=== PATIENT | female | born 1990 | race Caucasian/White ===

== ENCOUNTER 2016-05-12 07:15 | Inpatient (IN) | payer BC, OTHER ==
[~2016-05-12] VITALS: Ht 167.6 cm; Wt 75.0 kg
[2016-05-12] VITALS (23 sets, daily range): BP systolic 87–118; BP diastolic 48–80
[~2016-05-12 07:15] MED LIST: ACET50TA PO; ANUS2.5C2 PR; DOCU10ELUD PO; IBUP80TA PO; VITAPRTA PO
[2016-05-12] MEDS ORDERED: PENICILLIN G POTASSIUM IV 5 MU in D5W MINI-BAG PLUS 100 ML IV STA (07:58)
[2016-05-12] MEDS: miSOPROStol 50 MCG 1/2 TAB (S0191) PO SCH ×2 (08:27→12:46)
[2016-05-12 08:32] LABS: MEAN CORPUSCULAR HEMOGLOBIN 26.5 pg (27.0-33.0); MEAN CORPUSCULAR HGB CONC 33.1 g/dl (32.0-36.5); MEAN CORPUSCULAR VOLUME 80.3 fl (80.0-96.0); RED CELL DISTRIBUTION WIDTH 15.8 % (11.5-14.5); WHITE BLOOD COUNT 10.3 K/mm3 (4.0-10.0)
--- NOTE | 2016-05-12 08:50 | HPE ---
DATE OF ADMISSION: 05/12/2016 Presley is a 26-year-old 3, para 2-0-0-2 at 40-5/7 weeks gestation with an EDC of 05/07/2016 confirmed by first trimester ultrasound. She presents to labor and delivery today for induction of labor per consult with Dr. Diamond Ag for post term . care was initiated at [facility] in the first trimester. course has been uncomplicated. She does deny regular contractions, vaginal bleeding and leakage of fluid today and her fetus has been active. OBSTETRICAL HISTORY: May 2012 at 42 weeks gestation she had a spontaneous vaginal delivery for an 8 pounds 7 ounce female, vacuum-assisted delivery. June of 2014 at 41 weeks and 3 days she had an 8 pounds 10 ounce female, spontaneous vaginal delivery with a hemorrhage. Estimated blood loss of 600 mL. OBSTETRICAL LABS: Blood type is A+. Antibody screen negative. Pap was normal. Rubella immune. VDRL nonreactive. Urine culture with no growth. Hep B surface antigen negative. HIV negative. Hep C antibody negative. Gonorrhea and chlamydia negative. She did decline all genetic serum screenings. Her gestational diabetic screening was 85. Her Group B Streptococcus (GBS) is positive. PAST MEDICAL HISTORY: Childhood varicella. SURGERIES: None. FAMILY HISTORY: Hypertension, autoimmune disease and autism. SOCIAL HISTORY: The patient is . Her is at bedside and supportive. She is a nonsmoker. Denies alcohol and drug use. There is no history of sexually transmitted infection and she denies history of abuse physical, sexual and emotional. ALLERGIES: No known drug allergies. CURRENT MEDICATIONS: Include her vitamin. OBJECTIVE: Temperature 97.4, pulse 100, respirations 20, blood pressure is 108/63 today. She is alert and oriented times three and in no apparent distress. heart rate is 140 with moderate variability, positive accelerations, no decelerations. There is no pattern of regular contractions. Her abdomen is gravid, cephalic presentation. Estimated weight 8 pounds, 7 ounces. Sterile vaginal exam 1 cm dilated, 50% effaced, -3 station, posterior and soft. ASSESSMENT: Intrauterine at 40-5/7 weeks gestation. heart rate category 1. Post term . PLAN: Admit the patient to labor and delivery. Saline lock. Labs as ordered. Out of bed ad mina. Regular diet. Misoprostol 50 mcg by mouth every 4 hours for cervical ripening. I did review risks of induction including increased risk for section, intolerance to labor, failed induction and arrest of labor. The patient has had all of her questions answered and she does desire to proceed with induction of labor at this time. I do anticipate cervical ripening and active labor. [facility]
[2016-05-12] MEDS ORDERED: PENICILLIN G POTASSIUM IV 2.5 MU in D5W 100 ML IV SCH ×2 (12:00→21:30)
[2016-05-12] MEDS ORDERED: LR 1,000 ML IV SCH (16:57)
[2016-05-12] MEDS ORDERED: OXYTOCIN DRIP 30 UNITS in APPROPRIATE DILUENT 1 EA IV SCH (17:00)
[2016-05-12] MEDS ORDERED: FENTANYL 2MCG/ML ROPIVACAINE 0.2% NACL 250 ML CADD As Ordered ONE (20:43)
[2016-05-12] MEDS ORDERED: FENTANYL/ROPIVACAINE/NACL CADD 250 ML EPIDURAL SCH (21:45)
[2016-05-12] MEDS ORDERED: ONDANSETRON 4MG/2ML VIAL (J2405) IV PRN (21:45)
[2016-05-12] MEDS ORDERED: NALOXONE INJ 0.4 MG/1 ML VIAL (J2310) IV PRN (21:45)
[2016-05-12] MEDS ORDERED: REFRIGERATOR IV KEYS XX PRN (21:45)
[2016-05-12] MEDS ORDERED: EPIDURAL COMMENT XX SCH (21:45)
[2016-05-12] MEDS ORDERED: EPIDURAL/PCA KEYS XX PRN (21:45)
[2016-05-12] MEDS ORDERED: LACTATED RINGER'S 1000 ML IV PRN (21:45)
[2016-05-12] MEDS ORDERED: diphenhydrAMINE INJ 50MG/ML VIAL (J1200) IV PRN (21:45)
[2016-05-13] MEDS ORDERED: OXYTOCIN DRIP 30 UNITS in APPROPRIATE DILUENT 1 EA IV SCH (00:17)
[2016-05-13] MEDS ORDERED: DOCUSATE SODIUM 100 MG CAP PO PRN (00:30)
[2016-05-13] MEDS ORDERED: ANUSOL HC CREAM 30GM TOP PRN (00:30)
[2016-05-13] MEDS ORDERED: MEASLES,MUMPS,RUBELLA VACCINE INJ (MMR-II) (90707) SC SCH (00:30)
[2016-05-13] MEDS ORDERED: RHOGAM 300 MCG (1500 IU) INJ (J2790) IM SCH (00:30)
[2016-05-13] MEDS ORDERED: METHYLERGONOVINE MALEATE 0.2 MG/ML VIAL (J2210) IM ONE (00:30)
[2016-05-13] MEDS ORDERED: DIBUCAINE 1% OINTMENT 30GM TOP PRN (00:30)
[2016-05-13] MEDS ORDERED: METHYLERGONOVINE MALEATE 0.2 MG TAB PO PRN (00:30)
[2016-05-13] MEDS: IBUPROFEN 800 MG TAB PO PRN ×3 (00:56→16:59)
--- NOTE | 2016-05-13 01:03 | DN ---
DATE: 05/12/2016 Presley is a 26-year-old 4, para 3-0-1-3 now who was admitted to labor and delivery for induction of labor due to post-term . Two doses of misoprostol was utilized as well as IV Pitocin and labor did ensue. She did utilize an epidural for her labor coping. She progressed to full dilation at 23:20. She pushed to a normal spontaneous vaginal delivery of a live female infant in OA position with restitution to ROT position with a left compound hand at 23:29. There was no nuchal cord. The shoulders delivered spontaneously and the corpus immediately followed. The was placed on the maternal abdomen crying and active. Her mouth and nares were bulb suctioned. The cord was clamped times two and cut by the father of the baby. A spontaneous expulsion of an intact placenta with three-vessel cord by Hastings mechanism was at 23:35. Uterine hemostasis was achieved with IV Pitocin rapid infusion, Methergine IM and uterine fundal massage. Estimated blood loss 400 mL. Perineum and vagina were inspected and noted to have a second-degree midline laceration. The laceration was repaired under epidural anesthesia with 3-0 Rapide in the usual fashion. Mother and baby are stable at this time and will be transferred to mother baby care unit once they are recovered. Mom does plan to breastfeed her daughter. Infant weighed 7 pounds 12 ounces, 35:14 grams, 8/9. The name is undecided. At the close of delivery, lap counts, instrument counts and needle counts were correct and verified.
[2016-05-13 01:53] VITALS: BP 110/66
[2016-05-13 05:12] VITALS: BP 118/56
[2016-05-13] MEDS: PRENATAL VITAMIN TAB PO SCH (09:23)
[2016-05-13] MEDS: ACETAMINOPHEN 500 MG TAB PO PRN ×2 (12:53→20:40)
[2016-05-13 18:26] VITALS: BP 112/60
[2016-05-14] MEDS: IBUPROFEN 800 MG TAB PO PRN ×2 (02:02→08:15)
[2016-05-14 05:53] VITALS: BP 109/59
[2016-05-14] MEDS: PRENATAL VITAMIN TAB PO SCH (08:14)
[2016-05-14] MEDS ORDERED: IBUP-1114 PO (08:42)
[2016-05-14] MEDS ORDERED: ACET50TA PO (08:42)
== END 2016-05-14 11:35 | disposition home or self-care (01) | DRG 540 ==
LOC: M LDI 07:15 → M OBS 05-13 01:52
PROVIDERS: ADMIT Advanced Practice Midwife; ATTEND Advanced Practice Midwife
PROC: 10D00Z1 Extraction of Products of Conception, Low, Open Approach (ICD-10-PCS; principal; 2016-05-12)
PROC: 0KQM0ZZ Repair Perineum Muscle, Open Approach (ICD-10-PCS; 2016-05-12)
PROC: 3E0P7GC Introduction of Other Therapeutic Substance into Female Reproductive, Via Natural or Artificial Opening (ICD-10-PCS; 2016-05-12)
PROC: 3E033VJ Introduction of Other Hormone into Peripheral Vein, Percutaneous Approach (ICD-10-PCS; 2016-05-12)
DX: O48.0 Post-term pregnancy (principal); O32.6XX0 Maternal care for compound presentation, not applicable or unspecified; Z37.0 Single live birth; Z3A.40 40 weeks gestation of pregnancy; O70.1 Second degree perineal laceration during delivery

== ENCOUNTER → 2017-11-15 | Outpatient (CLI) | payer BC, OTHER ==
[2017-11-15 13:16] LABS: HEMOGLOBIN 10.8 g/dl (12.0-15.5); MEAN CORPUSCULAR HEMOGLOBIN 28.5 pg (27.0-33.0); MEAN CORPUSCULAR HGB CONC 32.7 g/dl (32.0-36.5); MEAN CORPUSCULAR VOLUME 87.1 fl (80.0-96.0); PLATELET COUNT, AUTOMATED 230 10^3/uL (150-450); RED BLOOD COUNT 3.79 10^6/uL (4.00-5.40); RED CELL DISTRIBUTION WIDTH 15.9 % (11.5-14.5); WHITE BLOOD COUNT 8.5 10^3/uL (4.0-10.0)
[2017-11-15 13:47] LABS: GLUCOSE CHALLENGE TEST 1 HOUR 86 MG/DL (LESS THAN 140)
== END ==
LOC: M SMT 10:45
DX: Z36.89 Encounter for other specified antenatal screening (principal); Z3A.00 Weeks of gestation of pregnancy not specified
CPT/HCPCS: 82950

== ENCOUNTER → 2017-11-15 | Outpatient (CLI) | payer BC, OTHER ==
[2017-11-15 15:21] LABS: HIV 1&2 SCREEN CENTAUR NEGATIVE (NEGATIVE)
== END ==
LOC: M SMT 10:49
DX: Z36.89 Encounter for other specified antenatal screening (principal); Z3A.00 Weeks of gestation of pregnancy not specified
CPT/HCPCS: 87389

== ENCOUNTER → 2018-01-22 | Outpatient (REF) | payer OTHER | LOC: M SMT 12:54 | DX: Z34.83 Encounter for supervision of other normal pregnancy, third trimester (principal) ==

== ENCOUNTER 2018-02-18 19:50 | Inpatient (IN) | payer BC, OTHER ==
[2018-02-18 20:49] LABS: HEMOGLOBIN 10.1 g/dl (12.0-15.5); MEAN CORPUSCULAR HEMOGLOBIN 24.6 pg (27.0-33.0); MEAN CORPUSCULAR HGB CONC 31.6 g/dl (32.0-36.5); MEAN CORPUSCULAR VOLUME 77.9 fl (80.0-96.0); PLATELET COUNT, AUTOMATED 216 10^3/uL (150-450); RED BLOOD COUNT 4.11 10^6/uL (4.00-5.40); RED CELL DISTRIBUTION WIDTH 17.5 % (11.5-14.5); WHITE BLOOD COUNT 8.1 10^3/uL (4.0-10.0)
[2018-02-18] MEDS: miSOPROStol 50 MCG 1/2 TAB (S0191) PO (20:54)
[2018-02-18] MEDS: PENICILLIN G POTASSIUM IV 5 MU in D5W MINI-BAG PLUS 100 ML IV (20:55)
[2018-02-18] MEDS: LR 1,000 ML IV (21:59)
[2018-02-19] MEDS: PENICILLIN G POTASSIUM IV 2.5 MU in APPROPRIATE DILUENT 1 EA IV (01:08)
[2018-02-19] MEDS: OXYTOCIN DRIP 30 UNITS in APPROPRIATE DILUENT 1 EA IV (01:08)
[2018-02-19] MEDS: LR 1,000 ML IV (01:08)
[2018-02-19] MEDS ORDERED: FENTANYL 2MCG/ML ROPIVACAINE 0.2% IN 0.9% NACL 200ML IVBAG As Ordered (01:29)
[2018-02-19] MEDS ORDERED: ePHEDrine SULFATE 25 MG/5 ML(5MG/ML) SYRINGE IV (02:15)
[2018-02-19] MEDS ORDERED: REFRIGERATOR IV KEYS XX (02:15)
[2018-02-19] MEDS ORDERED: FENTANYL/ROPIVACAINE/NACL BAG 200 ML EPIDURAL (02:15)
[2018-02-19] MEDS ORDERED: ONDANSETRON 4MG/2ML VIAL (J2405) IV (02:15)
[2018-02-19] MEDS ORDERED: EPIDURAL COMMENT XX (02:15)
[2018-02-19] MEDS ORDERED: diphenhydrAMINE INJ 50MG/ML VIAL (J1200) IV (02:15)
[2018-02-19] MEDS ORDERED: LACTATED RINGER'S 1000 ML IV (02:15)
[2018-02-19] MEDS ORDERED: NALOXONE INJ 0.4 MG/1 ML VIAL (J2310) IV (02:15)
[2018-02-19] MEDS ORDERED: EPIDURAL/PCA KEYS XX (02:15)
[2018-02-19] MEDS ORDERED: METHYLERGONOVINE MALEATE 0.2 MG/ML VIAL (J2210) As Ordered (04:20)
[2018-02-19] MEDS ORDERED: OXYTOCIN DRIP 30 UNITS in APPROPRIATE DILUENT 1 EA IV (05:10)
[2018-02-19] MEDS ORDERED: METHYLERGONOVINE MALEATE 0.2 MG/ML VIAL (J2210) IM (05:10)
[2018-02-19] MEDS ORDERED: RHOGAM 300 MCG (1500 IU) INJ (J2790) IM (05:15)
[2018-02-19] MEDS ORDERED: DIBUCAINE 1% OINTMENT 30GM TOP (05:15)
[2018-02-19] MEDS ORDERED: METHYLERGONOVINE MALEATE 0.2 MG TAB PO (05:15)
[2018-02-19] MEDS ORDERED: DOCUSATE SODIUM 100 MG CAP PO (05:15)
[2018-02-19] MEDS ORDERED: MEASLES,MUMPS,RUBELLA VACCINE INJ (MMR-II) (90707) SC (05:15)
[2018-02-19] MEDS ORDERED: ANUSOL HC CREAM 30GM TOP (05:15)
[2018-02-19] MEDS: PRENATAL VITAMINS CHEWABLE TABLET PO (07:58)
[2018-02-19] MEDS: IBUPROFEN 800 MG TAB PO ×2 (13:08→21:19)
[2018-02-19] MEDS: ACETAMINOPHEN 500 MG TAB PO (18:01)
[2018-02-20] MEDS: IBUPROFEN 800 MG TAB PO ×2 (04:37→13:53)
[2018-02-20] MEDS: PRENATAL VITAMINS CHEWABLE TABLET PO (08:48)
== END 2018-02-20 14:35 | disposition home or self-care (01) | DRG 560 ==
LOC: M LDI 19:50 → M OBS 02-19 07:56
PROVIDERS: Advanced Practice Midwife
PROC: 10E0XZZ Delivery of Products of Conception, External Approach (ICD-10-PCS; principal; 2018-02-18)
PROC: 0HQ9XZZ Repair Perineum Skin, External Approach (ICD-10-PCS; 2018-02-18)
PROC: 3E033VJ Introduction of Other Hormone into Peripheral Vein, Percutaneous Approach (ICD-10-PCS; 2018-02-18)
PROC: 10907ZC Drainage of Amniotic Fluid, Therapeutic from Products of Conception, Via Natural or Artificial Opening (ICD-10-PCS; 2018-02-18)
PROC: 3E0DXGC Introduction of Other Therapeutic Substance into Mouth and Pharynx, External Approach (ICD-10-PCS; 2018-02-18)
DX: O48.0 Post-term pregnancy (principal); O99.820 Streptococcus B carrier state complicating pregnancy; Z37.0 Single live birth; Z3A.40 40 weeks gestation of pregnancy; O70.0 First degree perineal laceration during delivery

== ENCOUNTER → 2019-08-13 | Outpatient (REF) | payer BC ==
[~2019-08-13] MED LIST changes: -ACET50TA PO; -DOCU10ELUD PO; +DOCU5LIQ PO; +IBUP-1114 PO; +MAPA500T17 PO; +MAPA500T2 PO; +PRENTAB9 PO
[2019-08-13 13:27] LABS: HEMATOCRIT 30.5 % (36.0-47.0); HEMOGLOBIN 9.7 g/dl (12.0-15.5); MEAN CORPUSCULAR HEMOGLOBIN 27.9 pg (27.0-33.0); MEAN CORPUSCULAR HGB CONC 31.8 g/dl (32.0-36.5); MEAN CORPUSCULAR VOLUME 87.6 fl (80.0-96.0); PLATELET COUNT, AUTOMATED 209 10^3/uL (150-450); RED BLOOD COUNT 3.48 10^6/uL (4.00-5.40)
== END ==
LOC: M PLALAB 09:28
PROVIDERS: ATTEND Advanced Practice Midwife
DX: Z34.93 Encounter for supervision of normal pregnancy, unspecified, third trimester (principal); Z3A.00 Weeks of gestation of pregnancy not specified

== ENCOUNTER 2019-10-03 13:14 | Inpatient (IN) | payer BC, OTHER ==
[2019-10-03] VITALS (25 sets, daily range): BP systolic 77–125; BP diastolic 43–63
[~2019-10-03] VITALS: Ht 167.6 cm; Wt 82.6 kg
[2019-10-03] MEDS ORDERED: IRON27TA2 PO (13:35)
[2019-10-03] MEDS ORDERED: PENICILLIN G POTASSIUM IV 5 MU in D5W MINI-BAG PLUS 100 ML IV STA ×2 (14:47→15:32)
--- NOTE | 2019-10-03 15:04 | HPE ---
DATE OF ADMISSION: 10/03/2019 HISTORY: 29-year-old, (G) 5, para (P) 4 female, at 39-1/7 weeks gestation by 9 week ultrasound, estimated date of confinement (EDC) 10/09/2019, presents for induction of labor. She has occasional contractions. She denies vaginal bleeding. COURSE: The patient initiated care [facility]. She had no complications. OBSTETRICAL HISTORY: 1. 2012, vaginal delivery, 8 pound 7 ounce female . 2. 2014, spontaneous vaginal delivery, 8 pound 10 ounce female . 3. 2016, spontaneous delivery, 7 pound 12 ounce female infant. 4. 2017, spontaneous delivery, 9 pound male infant. MEDICAL HISTORY: None. SURGICAL HISTORY: None. ALLERGIES: NONE. SOCIAL HISTORY: The patient lives in [place]. She is . She denies cigarettes, alcohol, or drug use. FAMILY HISTORY: Noncontributory. PHYSICAL [place]AMIN[place]: [place] [address], pulse 94. Afebrile. No apparent distress. HEAD/NECK: Exam normal. LUNGS: Clear. HEART: Regular rate and rhythm. ABDOMEN: Nontender, gravid. heart tones Category 1. CONTRACTIONS: Irregular. EXTREMITIES: Nontender. LABS: Blood type A positive and she is GBS positive. ASSESSMENT: 29-year-old, 5, para 4 female, at 39-1/7 weeks gestation who presents for labor induction. PLAN: The patient is admitted on 10/03/2019. Risks and benefits were discussed.
[2019-10-03] MEDS ORDERED: miSOPROStol 50 MCG 1/2 TAB (S0191) SL SCH (15:15)
[2019-10-03 15:24] LABS: HEMATOCRIT 33.1 % (36.0-47.0); HEMOGLOBIN 10.6 g/dl (12.0-15.5); MEAN CORPUSCULAR HEMOGLOBIN 27.5 pg (27.0-33.0); PLATELET COUNT, AUTOMATED 186 10^3/uL (150-450); RED BLOOD COUNT 3.85 10^6/uL (4.00-5.40); WHITE BLOOD COUNT 8.4 10^3/uL (4.0-10.0)
[2019-10-03] MEDS ORDERED: PENICILLIN G POTASSIUM IV 2.5 MU in IV 1 EA IV SCH ×2 (15:45→19:00)
[2019-10-03] MEDS ORDERED: LR 1,000 ML IV SCH ×2 (18:00→19:29)
[2019-10-03] MEDS ORDERED: OXYTOCIN 30 UNITS IN 0.9% NaCl 500ML IV BAG (J2590) As Ordered ONE (19:30)
[2019-10-03] MEDS ORDERED: OXYTOCIN DRIP 30 UNITS in IV 1 EA IV SCH (19:30)
[2019-10-03] MEDS: PENICILLIN G POTASSIUM IV 2.5 MU in IV 1 EA IV SCH ×2 (19:34→23:34)
[2019-10-03] MEDS ORDERED: **PENDING PCN ENTRY XX SCH (21:00)
[2019-10-03] MEDS ORDERED: FENTANYL 2MCG/ML ROPIVACAINE 0.2% IN 0.9% NACL 100ML IVBAG As Ordered ONE (22:50)
[2019-10-03] MEDS ORDERED: FENTANYL/ROPIVACAINE/NACL BAG 100 ML EPIDURAL SCH (23:20)
[2019-10-03] MEDS ORDERED: diphenhydrAMINE 50MG/ML VIAL (J1200) IV PRN (23:20)
[2019-10-03] MEDS ORDERED: ONDANSETRON 4MG/2ML VIAL IV PRN (23:20)
[2019-10-03] MEDS ORDERED: EPIDURAL/PCA KEYS XX PRN (23:20)
[2019-10-03] MEDS ORDERED: LACTATED RINGER'S 1000 ML IV PRN (23:20)
[2019-10-03] MEDS ORDERED: NALOXONE INJ 0.4MG/1ML VIAL (J2310 PER 1MG) IV PRN (23:20)
[2019-10-03] MEDS ORDERED: EPIDURAL COMMENT XX SCH (23:20)
[2019-10-03] MEDS ORDERED: REFRIGERATOR IV KEYS XX PRN (23:20)
[2019-10-03] MEDS ORDERED: ePHEDrine SULFATE 25 MG/5 ML(5MG/ML) SYRINGE IV PRN (23:20)
[2019-10-04] VITALS (20 sets, daily range): BP systolic 81–108; BP diastolic 50–65
[2019-10-04] MEDS: PENICILLIN G POTASSIUM IV 2.5 MU in IV 1 EA IV SCH (03:14)
[2019-10-04] MEDS ORDERED: OXYTOCIN DRIP 30 UNITS in IV 1 EA IV SCH ×4 (05:40)
[2019-10-04] MEDS ORDERED: ACETAMINOPHEN 500 MG TAB PO PRN (05:45)
[2019-10-04] MEDS ORDERED: RHOGAM 300 MCG (1500 IU) INJ (J2790) IM SCH (05:45)
[2019-10-04] MEDS ORDERED: MEASLES,MUMPS,RUBELLA VACCINE INJ (MMR-II) (90707) SC SCH (05:45)
[2019-10-04] MEDS ORDERED: METHYLERGONOVINE MALEATE 0.2 MG TAB PO PRN (05:45)
[2019-10-04] MEDS ORDERED: ANUSOL HC CREAM 30GM TOP PRN (05:45)
[2019-10-04] MEDS ORDERED: DIBUCAINE 1% OINTMENT 30GM TOP PRN (05:45)
[2019-10-04] MEDS ORDERED: ACETAMINOPHEN TAB 650MG DOSE (2X325MG) PO PRN (05:45)
[2019-10-04] MEDS ORDERED: METHYLERGONOVINE MALEATE 0.2 MG/ML VIAL (J2210) IM ONE (05:45)
[2019-10-04] MEDS ORDERED: DOCUSATE SODIUM 100 MG CAP PO PRN (05:45)
[2019-10-04] MEDS ORDERED: IBUPROFEN 600 MG TAB PO PRN (05:45)
[2019-10-04] MEDS ORDERED: OXYTOCIN 30 UNITS IN 0.9% NaCl 500ML IV BAG (J2590) As Ordered ONE (05:47)
--- NOTE | 2019-10-04 06:10 | DN ---
DATE OF DELIVERY: 10/04/2019 Presley is a 29-year-old, 5, para 5-0-0-5 now, who was admitted to labor and delivery for induction of labor for term . One dose of misoprostol was used and intravenous (IV) Pitocin, and labor did ensue. She used an epidural for her labor coping. She reached complete dilation at 0514 hours. She pushed to a normal spontaneous vaginal delivery of a live male in left occiput anterior (JULIANO) position with restitution to left occiput transverse (LOT) position at 0521 hours. There was a nuchal cord times two, loose, that was reduced manually at the time of delivery. The 's mouth and nares were bulb suctioned, and he placed on the maternal abdomen crying and active. The cord was clamped times two once pulsations ceased and cut by the father of the baby under my direction. Spontaneous expulsion of an intact placenta with three-vessel cord by Schultze mechanism was at 0521 hours. Uterine hemostasis achieved with IV Pitocin rapid infusion, Methergine 0.2 mg intramuscular (IM), and uterine fundal massage. Estimated blood loss 400 mL. Perineum and vagina inspected; noted to have a first-degree midline laceration. Laceration repaired in the usual fashion with #3-0 Rapide. male weight is pending. scores are 9 and 9. Mom is going to breastfeed her son, and the family have named him Reji. At the close of delivery, lap counts, needle counts, and instrument counts were correct and verified.
[2019-10-04] MEDS ORDERED: D5/0.9%NACL 1000ML IV ONE (07:45)
[2019-10-04] MEDS ORDERED: D5/LACTATED RINGERS 1000 ML IV ONE (07:45)
[2019-10-04] MEDS ORDERED: ONDANSETRON 4MG/2ML VIAL IV PRN (07:45)
[2019-10-04] MEDS: PRENATAL VITAMINS CHEWABLE TABLET PO SCH (09:00)
[2019-10-04 12:11] LABS: MEAN CORPUSCULAR HEMOGLOBIN 28.6 pg (27.0-33.0); MEAN CORPUSCULAR HGB CONC 33.3 g/dl (32.0-36.5); MEAN CORPUSCULAR VOLUME 85.7 fl (80.0-96.0); PLATELET COUNT, AUTOMATED 188 10^3/uL (150-450); WHITE BLOOD COUNT 14.6 10^3/uL (4.0-10.0)
[2019-10-04] MEDS: IBUPROFEN 800 MG TAB PO PRN (13:14)
[2019-10-05 06:13] VITALS: BP 99/50
[2019-10-05] MEDS: IBUPROFEN 800 MG TAB PO PRN (07:22)
[2019-10-05] MEDS: PRENATAL VITAMINS CHEWABLE TABLET PO SCH (09:20)
== END 2019-10-05 11:20 | disposition home or self-care (01) | DRG 560 ==
LOC: M LDI 13:14 → M OBS 10-04 14:47
PROVIDERS: ADMIT Advanced Practice Midwife; ATTEND Advanced Practice Midwife
PROC: 3E033VJ Introduction of Other Hormone into Peripheral Vein, Percutaneous Approach (ICD-10-PCS; 2019-10-03)
PROC: 3E0DXGC Introduction of Other Therapeutic Substance into Mouth and Pharynx, External Approach (ICD-10-PCS; 2019-10-03)
PROC: 10E0XZZ Delivery of Products of Conception, External Approach (ICD-10-PCS; principal; 2019-10-04)
PROC: 0HQ9XZZ Repair Perineum Skin, External Approach (ICD-10-PCS; 2019-10-04)
DX: O69.81X0 Labor and delivery complicated by cord around neck, without compression, not applicable or unspecified (principal); O70.0 First degree perineal laceration during delivery; Z37.0 Single live birth; Z3A.39 39 weeks gestation of pregnancy

== ENCOUNTER → 2021-05-11 | Outpatient (REF) | payer BC, OTHER ==
[~2021-05-11] MED LIST changes: +IRON27TA2 PO
== END ==
LOC: M SFHCWAGY 09:54
PROVIDERS: ATTEND Advanced Practice Midwife
DX: Z12.4 Encounter for screening for malignant neoplasm of cervix (principal)
CPT/HCPCS: 87624; G0123

== ENCOUNTER → 2021-08-03 | Outpatient (CLI) | payer BC, OTHER | LOC: M ADAMS 13:59 | PROVIDERS: ATTEND Family Medicine | DX: R06.00 Dyspnea, unspecified (principal) ==

== ENCOUNTER → 2021-08-03 | Outpatient (REF) | payer OTHER ==
[2021-08-03 17:13] LABS: BLOOD UREA NITROGEN 11 MG/DL (7-18); CALCIUM LEVEL 9.6 MG/DL (8.5-10.1); CARBON DIOXIDE LEVEL 28 MEQ/L (21-32); CHLORIDE LEVEL 108 MEQ/L (98-107); CREATININE FOR GFR 0.66 MG/DL (0.55-1.30); GLOMERULAR FILTRATION RATE > 60.0 (>60); GLUCOSE, FASTING 118 MG/DL (70-100); NT-PRO BNP 34 PG/ML (<125); POTASSIUM SERUM 4.1 MEQ/L (3.5-5.1); RHEUMATOID FACTOR QUANT < 10.0 IU/ML (<15.0); SODIUM LEVEL 141 MEQ/L (136-145)
== END ==
LOC: M SFHCADAM 13:25
PROVIDERS: ATTEND Family Medicine
DX: R06.00 Dyspnea, unspecified (principal); R20.2 Paresthesia of skin; M25.50 Pain in unspecified joint

== ENCOUNTER → 2021-09-14 | Outpatient (REF) | payer OTHER ==
[2021-09-15 14:52] LABS: ESTRADIOL < 19.0 PG/ML; FOLLICLE STIMULATING HORMONE 5.5 mIU/mL
== END ==
LOC: M SFHCADAM 15:35
PROVIDERS: ATTEND Family Medicine
DX: R23.2 Flushing (principal)

== ENCOUNTER → 2021-10-19 | Outpatient (REF) | payer OTHER ==
[2021-10-19 13:40] LABS: HCG, SERUM QUALITATIVE NEGATIVE (NEGATIVE)
[2021-10-19 13:44] LABS: PROLACTIN 4.3 NG/ML
== END ==
LOC: M LABDRWAD 12:27
PROVIDERS: ATTEND Advanced Practice Midwife
DX: E28.39 Other primary ovarian failure (principal)

== ENCOUNTER → 2022-03-16 | Outpatient (CLI) | payer OTHER ==
[2022-03-16 14:12] LABS: THYROID STIMULATING HORMONE 0.858 uIU/ML (0.358-3.740)
== END ==
LOC: M LABDRWAD 11:29
PROVIDERS: ATTEND Internal Medicine Endocrinology, Diabetes & Metabolism
DX: E28.310 Symptomatic premature menopause (principal)

== ENCOUNTER → 2022-03-28 | Outpatient (CLI) | payer BC, OTHER | LOC: M ADAMS 14:54 | PROVIDERS: ATTEND Physician Assistant | DX: R91.8 Other nonspecific abnormal finding of lung field (principal) ==

== ENCOUNTER → 2022-07-07 | Outpatient (CLI) | payer BC, OTHER ==
[2022-07-07 18:19] LABS: FOLLICLE STIMULATING HORMONE 2.8 mIU/ML; LUTEINIZING HORMONE 2.7 mIU/ML
== END ==
LOC: M LABDRWAD 12:13
PROVIDERS: ATTEND Internal Medicine Endocrinology, Diabetes & Metabolism
DX: E28.310 Symptomatic premature menopause (principal)

== ENCOUNTER → 2022-08-25 | Outpatient (CLI) | payer BC, OTHER ==
[~2022-08-25] MED LIST changes: +METHACHOLINE KIT INH ONE
== END ==
LOC: M CARPUL 15:04
PROVIDERS: ATTEND Physician Assistant
DX: R06.00 Dyspnea, unspecified (principal)
CPT/HCPCS: 94070; J7674

== ENCOUNTER → 2023-03-28 | Outpatient (REF) | payer OTHER ==
[~2023-03-28] MED LIST changes: -METHACHOLINE KIT INH ONE
== END ==
LOC: M SFHCADAM 16:25
PROVIDERS: ATTEND Family Medicine
DX: Z53.9 Procedure and treatment not carried out, unspecified reason (principal)

== ENCOUNTER → 2023-07-12 | Outpatient (REF) | payer OTHER ==
[2023-07-12 14:22] LABS: BASO # 0.1 10^3/uL (0.0-0.2); BASO % 0.8 % (0.0-1.0); EOS # 0.2 10^3/uL (0.0-0.5); EOS % 3.1 % (0.0-3.0); HEMOGLOBIN 12.8 g/dl (12.0-15.5); LYMPH # 1.9 10^3/uL (1.5-5.0); LYMPH % 25.7 % (24.0-44.0); MEAN CORPUSCULAR HEMOGLOBIN 28.9 pg (27.0-33.0); MEAN CORPUSCULAR HGB CONC 32.8 g/dl (32.0-36.5); MONO # 0.8 10^3/uL (0.0-0.8); MONO % 10.5 % (2.0-8.0); NEUTROPHILS # 4.4 10^3/uL (1.5-8.5); NEUTROPHILS % 59.6 % (36.0-66.0); PLATELET COUNT, AUTOMATED 229 10^3/uL (150-450); RED BLOOD COUNT 4.43 10^6/uL (4.00-5.40); WHITE BLOOD COUNT 7.4 10^3/uL (4.0-10.0)
[2023-07-12 14:46] LABS: ALBUMIN 3.9 G/DL (3.2-5.2); ALKALINE PHOSPHATASE 32 U/L (46-116); ALT/SGPT 10 U/L (7.0-40); AST/SGOT < 8 U/L (<34); BILIRUBIN,TOTAL 0.5 MG/DL (0.3-1.2); BLOOD UREA NITROGEN 16 MG/DL (9-23); CARBON DIOXIDE LEVEL 30 MMOL/L (20-31); CHLORIDE LEVEL 104 MMOL/L (98-107); CREATININE FOR GFR 0.63 MG/DL (0.55-1.30); FOLLICLE STIMULATING HORMONE 5.8 mIU/ML; FREE T4 1.07 NG/DL (0.89-1.76); GLOMERULAR FILTRATION RATE > 60.0 (>60); GLUCOSE, FASTING 70 MG/DL (60-100); POTASSIUM SERUM 4.3 MMOL/L (3.5-5.1); SODIUM LEVEL 139 MMOL/L (136-145); THYROID STIMULATING HORMONE 1.199 uIU/ML (0.55-4.78); TOTAL PROTEIN 6.4 G/DL (5.7-8.2)
[2023-07-12 14:47] LABS: ESTRADIOL 54.8 PG/ML; LUTEINIZING HORMONE 7.2 mIU/ML; PROLACTIN 4.26 NG/ML
[2023-07-13 09:08] LABS: TESTOSTERONE FREE (DIRECT) 0.5 pg/mL (0.0-4.2)
== END ==
LOC: M SFHCADAM 11:20
PROVIDERS: ATTEND Family Medicine
DX: N92.6 Irregular menstruation, unspecified (principal); R53.83 Other fatigue

== ENCOUNTER → 2023-10-09 | Outpatient (REF) | payer OTHER | LOC: M SFHCADAM 11:32 | PROVIDERS: ATTEND Family Medicine | DX: Z77.011 Contact with and (suspected) exposure to lead (principal) ==

== ENCOUNTER → 2024-01-09 | Outpatient (REF) | payer OTHER ==
[2024-01-09 18:42] LABS: VITAMIN B12 LEVEL 629 PG/ML (211-911)
[2024-01-09 18:43] LABS: FOLLICLE STIMULATING HORMONE 5.4 mIU/ML; PROGESTERONE < 0.21 NG/ML; TOTAL 25(OH) VITAMIN D 26.4 NG/ML (20.0-100.0)
[2024-01-09 18:44] LABS: ESTRADIOL 90.1 PG/ML; FERRITIN 35.7 NG/ML (7.3-270.7); LUTEINIZING HORMONE 15.2 mIU/ML
[2024-01-09 18:47] LABS: FOLATE 17.96 NG/ML (>5.4)
== END ==
LOC: M LABDRWAD 17:34
PROVIDERS: ATTEND Advanced Practice Midwife
DX: N92.6 Irregular menstruation, unspecified (principal); D50.9 Iron deficiency anemia, unspecified; E55.9 Vitamin D deficiency, unspecified

== ENCOUNTER → 2024-04-16 | Outpatient (CLI) | payer OTHER | LOC: M CARPUL 16:14 | PROVIDERS: ATTEND Family Medicine | DX: G90.A Postural orthostatic tachycardia syndrome [POTS] (principal) ==

== ENCOUNTER → 2024-07-11 | Outpatient (CLI) | payer OTHER ==
[2024-07-11 13:42] LABS: BASO # 0.1 10^3/uL (0.0-0.2); BASO % 0.7 % (0.0-1.0); EOS # 0.1 10^3/uL (0.0-0.5); EOS % 1.2 % (0.0-3.0); HEMATOCRIT 42.9 % (36.0-47.0); LYMPH % 26.5 % (24.0-44.0); MEAN CORPUSCULAR HEMOGLOBIN 28.3 pg (27.0-33.0); MEAN CORPUSCULAR HGB CONC 32.6 g/dl (32.0-36.5); MEAN CORPUSCULAR VOLUME 86.7 fl (80.0-96.0); MONO # 0.9 10^3/uL (0.0-0.8); MONO % 11.1 % (2.0-8.0); NEUTROPHILS # 4.7 10^3/uL (1.5-8.5); NEUTROPHILS % 60.4 % (36.0-66.0); PLATELET COUNT, AUTOMATED 213 10^3/uL (150-450); RED BLOOD COUNT 4.95 10^6/uL (4.00-5.40); WHITE BLOOD COUNT 7.7 10^3/uL (4.0-10.0)
[2024-07-13 01:12] LABS: BERMUDA GRASS IGE < 0.10 kU/L (<0.10); BIRCH IGE < 0.10 kU/L (<0.10); COMMON RAGWEED SHORT IGE < 0.10 kU/L (<0.10); D001 IGE D PTERONYSSINUS < 0.10 kU/L (<0.10); D002-IGE D FARINAE < 0.10 kU/L (<0.10); E001-IGE CAT DANDER < 0.10 kU/L (<0.10); E005-IGE DOG DANDER < 0.10 kU/L (<0.10); ELM IGE < 0.10 kU/L (<0.10); I006 IGE COCKROACH < 0.10 kU/L (<0.10); IMMUNOGLOBULIN E FOR ALLERGENS < 2 kU/L (<OR=114); M002 IGE CLADOSPORIUM HERBARU < 0.10 kU/L (<0.10); M003 IGE ASPERGILLUS FUMIGATU < 0.10 kU/L (<0.10); M006 IGE ALTERNIA ALTERNATA < 0.10 kU/L (<0.10); M1-PENICILLIUM NOTATUM < 0.10 kU/L (<0.10); MOUSE URINE IGE < 0.10 kU/L (<0.10); MUGWORT IGE < 0.10 kU/L (<0.10); OAK IGE < 0.10 kU/L (<0.10); ROUGH PIGWEED IGE < 0.10 kU/L (<0.10); SHEEP SORREL IGE < 0.10 kU/L (<0.10); SYCAMORE IGE < 0.10 kU/L (<0.10); T001-IGE MAPLE BOX ELDER < 0.10 kU/L (<0.10); T006-IGE MOUNTAIN CEDAR < 0.10 kU/L (<0.10); T014 COTTONWOOD IGE < 0.10 kU/L (<0.10); TIMOTHY GRASS IGE < 0.10 kU/L (<0.10); WALNUT TREE IGE < 0.10 kU/L (<0.10); WHITE ASH IGE < 0.10 kU/L (<0.10); WHITE MULBERRY IGE < 0.10 kU/L (<0.10)
[2024-07-17 15:07] LABS: ASPERGILLUS FUMIGATUS AB NEGATIVE (NEGATIVE); MICROPOLYSPORA FAENI AB NEGATIVE (NEGATIVE); PIGEON SERUM AB NEGATIVE (NEGATIVE); S VIRIDIS NEGATIVE (NEGATIVE); T CANDIDUS NEGATIVE (NEGATIVE); THERMOACTINOMYCES VULGARIS NEGATIVE (NEGATIVE)
== END ==
LOC: M ADAMS 10:40
PROVIDERS: ATTEND Internal Medicine Pulmonary Disease
DX: J45.40 Moderate persistent asthma, uncomplicated (principal)